=== PATIENT | male | born 1955 | race Caucasian/White ===

== ENCOUNTER 2016-06-27 07:21 | Day surgery (SDC) | payer MEDICAID ==
[2016-06-27] MEDS ORDERED: LIDOCAINE 1% 5 ML SDV ID PRN (07:53)
[2016-06-27] MEDS ORDERED: LR 1,000 ML IV ONE (07:53)
[2016-06-27] MEDS ORDERED: LIDOCAINE 1% 2 ML INJ ONE (07:59)
[2016-06-27] MEDS ORDERED: MIDAZOLAM 2 MG/2 ML VIAL ONE (08:45)
[2016-06-27] MEDS ORDERED: fentaNYL 100 MCG/2 ML INJ ONE ×3 (08:48→11:14)
[2016-06-27] MEDS ORDERED: PROPOFOL/EMULSION 500 MG/50 ML BOTTLE IV ONE (08:48)
[2016-06-27] MEDS ORDERED: DEXAMETHASONE 10 MG/ML VIAL IV ONE (09:00)
[2016-06-27] MEDS ORDERED: ceFAZolin 2 GM/DEXTROSE 100 ML IV ONE (09:00)
[2016-06-27] MEDS ORDERED: OXYCODONE/APAP 5/325 TAB ONE (11:14)
--- NOTE | 2016-06-30 14:48 | GOP ---
[f rep st] OPERATIVE REPORT DATE OF OPERATION: 06/27/2016 SURGEON: Aneta Rockwell MD ANESTHESIA: General. PREOPERATIVE DIAGNOSIS: 1. Sore throat. 2. Concern for possible cancer. POSTOPERATIVE DIAGNOSIS: 1. Sore throat. 2. Concern for possible cancer. 3. 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 PROCEDURE PERFORMED: Direct laryngoscopy with biopsy of the right inferior tonsillar pole and right base of tongue. FINDINGS: Patient was found to have an area of induration just at the very inferior part of the ton wilbert where this merges into the base of tongue on the right. I did not see an overt ulcer, but this area was very friable. Multiple biopsies were taken and sent for frozen, of which this came back wi th moderately-differentiated invasive squamous cell carcinoma. ESTIMATED BLOOD LOSS: Minimal. DESCRIPTION OF PROCEDURE: The patient was first seen in the preoperative area, where informed conse nt was obtained. He was then brought back to the operating room, where Anesthesia sedated and intub ated him. The bed was turned 90 degrees. He was prepped and draped in the normal fashion. A shoul gagan roll was placed. I placed a tooth guard to protect the teeth. I initially placed a [place] laryngoscope to evaluate the oral cavity, the tongue, the tonsil on the right and the left. Of note, he had previo usly had a tonsillectomy, although on the right side he was noted to have what looked like some infe rior pole of the tonsil still present, and this did seem to merge with some lymphoid tissue into the base of tongue on the same side. This area was very friable, although I did not see an obvious ulc er. I continued my evaluation of posterior pharyngeal wall and the larynx without any other signifi cant findings. So at this point, the laryngoscope was pulled back until I could get visualization o f the area of concern on the right inferior tonsil and base of tongue, and multiple biopsies were ta miri with a cup forceps. These were sent off for frozen pathology. A couple more biopsies were take n, and this was sent for permanent pathology. At this point, Afrin-soaked pledgets were placed over the area of biopsy sites to try to control some ooze. An endoscopic suction cautery was used to ca uterize some small oozing in this region, and once it was noted to be dry, the pharynx was suctioned out. Laryngoscope was then removed and he was turned back over to Anesthesia, where he was awoken, extuba ira, and taken to PACU in stable condition. There were no complications and he tolerated the proced ure well. COMPLICATIONS: None. /[id number]/MODL
== END 2016-06-27 11:55 | disposition home health service (06) ==
LOC: FSGY 07:21
PROVIDERS: ATTEND Otolaryngology
PROC: 0CBPXZX Excision of Tonsils, External Approach, Diagnostic (ICD-10-PCS; principal; 2016-06-27 09:00)
DX: C09.9 Malignant neoplasm of tonsil, unspecified (principal); R13.10 Dysphagia, unspecified; H92.09 Otalgia, unspecified ear; R06.83 Snoring; R06.81 Apnea, not elsewhere classified; I10 Essential (primary) hypertension
CPT/HCPCS: J0171; J0690; J2250; J2704; J3010

== ENCOUNTER 2016-10-19 10:39 | Emergency (ER) | payer MEDICAID ==
[2016-10-19] MEDS ORDERED: NS 1,000 ML IV ONE (11:07)
--- NOTE | 2016-10-19 11:10 | EDPHY ---
HPI/HX/ROS/PE/MDM Narrative: CHIEF COMPLAINT: Dehydrated HPI: The patient is a 61-year-old male with a history of throat cancer, currently undergoing radiation therapy. He has a feeding tube in place. He describes worsening diarrhea over the last few days every time he uses his feeding tube. He denies abdominal pain. He feels like he has been unable to keep up with his oral intake. He presented to the cancer center just prior to arrival and was found to have a mildly low blood pressure and was referred to the ER for IV fluids. The patient complains of some diffuse back pain. He denies fever. REVIEW OF SYSTEMS: Aside from elements discussed in the HPI, a comprehensive 10-point review of systems was reviewed and is negative. PMH: Throat cancer. SOCIAL HISTORY: Denies alcohol or drug abuse. PHYSICAL EXAM: General:Patient is alert, in no acute distress. ENT:Eyes are normal to inspection. ENT inspection normal. Cannot visualize posterior oropharynx. Neck: Normal inspection. Full range of motion. Respiratory:No respiratory distress. Breath sounds normal bilaterally. Cardiovascular: Regular rate and rhythm. Strong peripheral pulses. Normal cap refill. Abdomen:The abdomen is nontender to palpation. There are no peritoneal signs. There are normal bowel sounds. Feeding tube in place. Back: Normal to inspection. No tenderness to palpation. Skin: Normal color. No rash. Warm and dry. Extremities: Normal appearance. Full range of motion. Neuro: Oriented x3. Normal motor function. Normal sensory function. MDM: This patient presents with sense of dehydration secondary to difficulty taking PO secondary to throat cancer as well as diarrhea related to what sounds like a dumping syndrome. His vitals and labs are normal. He was given IVNS and feels much better. He declines additional testing or treatment. - Data Points Laboratory Results: Laboratory Results 10/19/16 11:40 10/19/16 11:40 10/19/16 10/19/16 11:40 11:40 WBC 6.97 10^3/uL 10^3/uL (3.80-9.50) RBC 4.78 10^6/uL 10^6/uL (4.40-6.38) Hgb 14.4 g/dL g/dL (13.7-17.5) Hct 41.9 % % (40.0-51.0) MCV 87.7 fL fL (81.5-99.8) MCH 30.1 pg pg (27.9-34.1) MCHC 34.4 g/dL g/dL (32.4-36.7) RDW 12.3 % % (11.5-15.2) Plt Count 186 10^3/uL 10^3/uL (150-400) MPV 10.3 fL fL (8.7-11.7) Neut % (Auto) 77.1 % H % (39.3-74.2) Lymph % (Auto) 10.8 % L % (15.0-45.0) [place] % (Auto) 10.2 % % (4.5-13.0) Eos % (Auto) 1.0 % % (0.6-7.6) Baso % (Auto) 0.3 % % (0.3-1.7) Nucleat RBC Rel Count 0.0 % % (0.0-0.2) Absolute Neuts (auto) 5.38 10^3/uL 10^3/uL (1.70-6.50) Absolute Lymphs (auto) 0.75 10^3/uL L 10^3/uL (1.00-3.00) Absolute Monos (auto) 0.71 10^3/uL 10^3/uL (0.30-0.80) Absolute Eos (auto) 0.07 10^3/uL 10^3/uL (0.03-0.40) Absolute Basos (auto) 0.02 10^3/uL 10^3/uL (0.02-0.10) Absolute Nucleated RBC 0.00 10^3/uL 10^3/uL (0-0.01) Immature Gran % 0.6 % % (0.0-1.1) Immature Gran # 0.04 10^3/uL 10^3/uL (0.00-0.10) Sodium 139 mEq/L mEq/L (134-144) Potassium 4.2 mEq/L mEq/L (3.5-5.2) Chloride 104 mEq/L mEq/L (97-110) Carbon Dioxide 22 mEq/l mEq/l (22-31) Anion Gap 13 mEq/L mEq/L (8-16) BUN 14 mg/dL mg/dL (7-23) Creatinine 0.7 mg/dL mg/dL (0.7-1.3) Estimated GFR > 60 Glucose 90 mg/dL mg/dL (70-100) Calcium 9.1 mg/dL mg/dL (8.5-10.4) Medications Given: Discontinued Medications Hydromorphone HCl (Dilaudid) 0.5 mg IVP EDNOW ONE Stop: 10/19/16 11:45 Last Admin: 10/19/16 11:46 Dose: Not Given Sodium Chloride (Ns) 1,000 mls @ 0 mls/hr IV EDNOW ONE; Wide Open PRN Reason: Protocol Stop: 10/19/16 11:08 Last Admin: 10/19/16 11:30 Dose: 1,000 mls General Time Seen by Provider: 10/19/16 11:02 Initial Vital Signs: Initial Vital Signs Temperature (C) 37.1 C 10/19/16 10:47 Heart Rate 53 L 10/19/16 10:47 Blood Pressure 100/77 10/19/16 10:47 O2 Sat (%) 96 10/19/16 10:47 O2 Delivery Mode Room Air Allergies/Adverse Reactions: No Known Allergies Allergy (Verified 10/19/16 10:51) Home Medications: Medication Instructions Recorded ASPIRIN 06/22/16 Carvedilol BID 06/22/16 Herbals/Supplements -Info Only 06/22/16 Lipitor 06/22/16 Lotrel 10-40 mg Capsule 06/22/16 Mucinex 10/19/16 Oxycodone 10/19/16 Zofran 10/19/16 Departure - Departure Disposition: Home, Routine, Self-Care Clinical Impression: Dehydration, Throat cancer Condition: Good Instructions: Dehydration (ED) Additional Instructions: Follow-up with your primary doctor within 72 hours. Return to the Emergency Department for fever, chest pain, shortness of breath, increasing pain or other worsening of condition. Referrals: Roman Jerez MD [Primary Care Provider] - As per Instructions
[2016-10-19] MEDS ORDERED: HYDROmorphONE/DILAUDID 1 MG/ML INJ IVP ONE (11:44)
[2016-10-19 11:57] LABS: % IMMATURE GRANULYOCYTES 0.6 % (0.0-1.1); ABSOLUTE IMMATURE GRANULOCYTES 0.04 10^3/uL (0.00-0.10); ADD DIFF? NO; ADD MORPH? NO; ADD SCAN? NO; ATYPICAL LYMPHOCYTE FLAG 0 (0-99); FRAGMENT RBC FLAG 0 (0-99); HEMATOCRIT 41.9 % (40.0-51.0); HEMOGLOBIN 14.4 g/dL (13.7-17.5); LEFT SHIFT FLG 0 (0-99); LIPEMIA HEMOLYSIS FLAG 90 (0-99); MEAN CELL HEMOGLOBIN 30.1 pg (27.9-34.1); MEAN CELL HEMOGLOBIN CONCENTR. 34.4 g/dL (32.4-36.7); MEAN CELL VOLUME 87.7 fL (81.5-99.8); MEAN PLATELET VOLUME 10.3 fL (8.7-11.7); PLATELET CLUMPS FLAG 0 (0-99); PLATELET COUNT 186 10^3/uL (150-400); RED BLOOD CELL COUNT 4.78 10^6/uL (4.40-6.38); RED CELL DISTRIBUTION WIDTH 12.3 % (11.5-15.2)
[2016-10-19 12:10] LABS: ANION GAP 13 mEq/L (8-16); CALCIUM 9.1 mg/dL (8.5-10.4); CARBON DIOXIDE 22 mEq/l (22-31); CHLORIDE 104 mEq/L (97-110); CREATININE 0.7 mg/dL (0.7-1.3); GLOMERULAR FILTRATION RATE > 60; GLUCOSE 90 mg/dL (70-100); POTASSIUM 4.2 mEq/L (3.5-5.2); SODIUM 139 mEq/L (134-144)
[2016-10-19 12:55] VITALS: RESP 16; O2SAT 95
[2016-10-19 13:57] VITALS: BP 112/68; PULSE 56; TEMP 97.9
== END 2016-10-19 13:57 | disposition home or self-care (01) ==
DX: E86.0 Dehydration (principal); E86.9 Volume depletion, unspecified; Z85.818 Personal history of malignant neoplasm of other sites of lip, oral cavity, and pharynx